=== PATIENT | male | born 1990 | race Caucasian/White ===

== ENCOUNTER 2022-02-24 12:53 | Emergency (ER) | payer SELFPAY ==
[~2022-02-24] VITALS: Ht 177.8 cm; Wt 68.2 kg
[2022-02-24] MEDS ORDERED: CEPHALEXIN500 M2 PO (16:14)
[2022-02-24 16:36] VITALS: BP 106/76
== END 2022-02-24 16:44 | disposition home or self-care (01) ==
LOC: ED 12:53
DX: S62.632A Displaced fracture of distal phalanx of right middle finger, initial encounter for closed fracture (principal); S61.312A Laceration without foreign body of right middle finger with damage to nail, initial encounter; Z28.310 Unvaccinated for COVID-19; W27.0XXA Contact with workbench tool, initial encounter; Y92.59 Other trade areas as the place of occurrence of the external cause; Y99.0 Civilian activity done for income or pay